=== PATIENT | female | born 1995 | race African-American/Black ===

== ENCOUNTER 2018-07-30 12:03 | Emergency (ER) | payer BC, OTHER ==
[~2018-07-30] VITALS: Ht 165.1 cm; Wt 75.4 kg
[2018-07-30 13:05] LABS: MICROSCOPIC AUTO
[2018-07-30 13:06] LABS: CULTURE INDICATED? YES
--- NOTE | 2018-07-30 13:56 | NUR ---
First contact with pt. Pt c/o dizziness, generalized weakness starting this morning. Pt states she was at work this morning and "my friends said that my face was really pale." Pt states mild non-productive cough this morning as well. Pt speaking in full sentences, resp even and unlabored, NADN. Pt placed in gown, positioned for comfort in bed with warm blanket. Continuous heart, oxygen and BP monitors applied, all safety measures observed.
[2018-07-30 13:58] LABS: BASOPHILS # (AUTO) 0.03 x10^3/uL (0-0.1); BASOPHILS % (AUTO) 1 % (0-1); EOSINOPHILS # (AUTO) 0.09 x10^3/uL (0-0.4); EOSINOPHILS % (AUTO) 2 % (1-7); LYMPHOCYTES # (AUTO) 2.75 x10^3/uL (1-3.4); LYMPHOCYTES % (AUTO) 43 % (22-44); MD NO; MEAN CORPUSCULAR HEMOGLOBIN 27.9 pg (27.0-34.8); MEAN CORPUSCULAR HGB CONC 31.7 g/dL (32.4-35.8); MEAN CORPUSCULAR VOLUME 87.9 fL (80-100); MEAN PLATELET VOLUME 8.2 fL (7.4-10.4); MONOCYTES # (AUTO) 0.43 x10^3/uL (0.2-0.8); MONOCYTES % (AUTO) 7 % (2-9); NEUTROPHILS # (AUTO) 3.09 x10^3/uL (1.8-6.8); NEUTROPHILS % (AUTO) 48 % (42-75); PLATELET COUNT 317 x10^3/uL (130-400); RED BLOOD COUNT 4.52 x10^6/uL (3.82-5.3); RED CELL DISTRIBUTION WIDTH 14.4 % (9.6-15.2)
[2018-07-30 13:59] LABS: ALBUMIN 4.1 g/dL (3.4-5.0); ANION GAP 6 mmol/L (5-15); CALCIUM 8.8 mg/dL (8.5-10.1); CHLORIDE 109 mmol/L (98-107); CREATININE 0.75 mg/dL (0.55-1.02)
[2018-07-30 14:02] LABS: TROPONIN I < 0.015 ng/mL (0.000-0.045)
--- NOTE | 2018-07-30 15:00 | NUR ---
Orthostatic VS performed by EMT. Pt tolerated well, resting in bed, NADN, denies needs.
--- NOTE | 2018-07-30 15:57 | NUR ---
Pt given water per request, denies other needs.
[2018-07-30 16:42] VITALS: BP 114/70
== END 2018-07-30 16:44 | disposition home or self-care (01) ==
LOC: ED 16:03
DX: N30.00 Acute cystitis without hematuria (principal); R42 Dizziness and giddiness; R51 Headache; R05 Cough
CPT/HCPCS: 36415; 71046; 80048; 81001; 81025; 82040; 84484; 85025; 87086; 93005; 99284